=== PATIENT | female | born 1980 | race Caucasian/White ===

== ENCOUNTER 2020-04-19 12:38 | Outpatient (CLI) | payer BC ==
--- NOTE | 2020-04-19 13:41 | MRI ---
Exam: MRI cervical spine without contrast HISTORY: Cervical radiculopathy. Chronic neck pain, x10 years.. COMPARISON: 01/05/2015 FINDINGS: Appropriate T1 marrow signal intensity of the cervical vertebra. Cervical spine vertebral body heigh ts are maintained. No fracture. No significant STIR hyperintensity to suggest ligamentous injury or vertebral body edema. Stable straightening of the cervical lordosis. Visualized brain parenchyma, cervicomedullary junction, cervical cord and the upper thoracic cord hav e a normal size and signal intensity. C2-C3: Adequate disc hydration. Central disc herniation minimally deforms the thecal sac. Subarachnoi d space is maintained. No significant central canal stenosis or significant neural foraminal foraminal narrowing. C3-C4: Adequate disc hydration. Minimal broad-based disc bulge abuts the thecal sac. No significant c entral canal stenosis. Patent bilateral neural foramina. C4-C5: Adequate disc hydration. Central disc herniation abuts the thecal sac. Subarachnoid space main tained. Mild central canal stenosis. Patent bilateral neural foramina. C5-C6: Broad-based disc osteophyte complex abuts the thecal sac. There is flattening and deformity of the midline and right aspect of the cervical cord, without cord signal abnormality. Mild to moderate stenosis of the right aspect of the central spinal canal. Mild right foraminal narrowing due to uncovertebral hypertrophy. Patent left neural foramen. C6-C7: Adequate disc hydration. No posterior disc abnormalities. No significant central canal stenosi s or significant neural foraminal narrowing. C7-T1: Adequate disc hydration. No posterior disc abnormality. No significant central canal stenosis or significant neural foraminal narrowing. IMPRESSION: Multilevel degenerative changes of the cervical spine as described above. Transcribed Date/Time: 04/19/2020 1:51 PM
== END 2020-04-19 12:39 | disposition home or self-care (01) ==
LOC: SCSMRI 12:38
DX: M47.22 Other spondylosis with radiculopathy, cervical region (principal)
CPT/HCPCS: 72141

== ENCOUNTER 2020-06-07 11:24 | Outpatient (CLI) | payer BC ==
--- NOTE | 2020-06-07 12:16 | RAD ---
RADIOGRAPH CERVICAL SPINE 3 VIEWS: DATE: 06/07/2020 HISTORY: 40-year-old female with cervicalgia, chronic neck pain M 54.2 TECHNIQUE: 3 lateral views in flexion, extension, and neutral. FINDINGS: Vertebral body heights are maintained. No major subluxation. At C5-6, there is mild to moderate disc space narrowing, slightly worse than on 05/31/2017. There is f airly good range of motion between flexion and extension. There is no instability. The rest of the disc spaces are maintained. No prevertebral soft tissue swelling. IMPRESSION: 1) moderate degenerative disc disease at C5-6. 2) no instability 3) the rest of the levels are normal
== END 2020-06-07 11:25 | disposition home or self-care (01) ==
LOC: SCSRAD 11:24
PROVIDERS: ATTEND Neurological Surgery
DX: M54.2 Cervicalgia (principal); M50.322 Other cervical disc degeneration at C5-C6 level
CPT/HCPCS: 72040

== ENCOUNTER 2023-04-02 13:09 | Outpatient (CLI) | payer BC | END 2023-04-02 13:10 | disposition home or self-care (01) | LOC: SCSRAD 13:09 | PROVIDERS: ATTEND Chiropractor | DX: M54.50 Low back pain, unspecified (principal) | CPT/HCPCS: 72100 ==

== ENCOUNTER 2023-06-07 11:30 | Outpatient (CLI) | payer BC | END 2023-06-07 11:31 | disposition home or self-care (01) | LOC: SCSMRI 11:30 | PROVIDERS: ATTEND Obstetrics & Gynecology Reproductive Endocrinology | DX: M54.50 Low back pain, unspecified (principal); M47.816 Spondylosis without myelopathy or radiculopathy, lumbar region | CPT/HCPCS: 72148 ==